=== PATIENT | male | born 1970 | race Caucasian/White ===

== ENCOUNTER 2018-12-29 21:22 | Inpatient (IN) | payer MEDICAID, MEDICARE ==
[~2018-12-29] VITALS: Ht 185.4 cm; Wt 94.5 kg
[2018-12-29] MEDS ORDERED: HALOPERIDOL 5 MG TABLET PO PRN (21:45)
[2018-12-29] MEDS ORDERED: ZOLPIDEM TARTRATE 10 MG TABLET PO PRN (21:45)
[2018-12-29 21:58] VITALS: BP 145/87
[2018-12-29] MEDS ORDERED: PNEUMOCOCCAL VACCINE POLYVALENT 0.5 ML VIAL [PPSV23] IM ONE (22:30)
[2018-12-30] MEDS: LORazepam 2 MG TABLET PO PRN ×2 (00:41→18:33)
[2018-12-30 00:43] VITALS: BP 129/66
[2018-12-30 08:36] LABS: EOSINOPHILS % (AUTO) 2.5 % (1.0-6.0); HEMATOCRIT 48.3 % (41-53); HEMOGLOBIN 16.2 g/dL (13.5-17.5); LYMPHOCYTES # (AUTO) 1.7 K/uL (1.0-4.8); LYMPHOCYTES % (AUTO) 30.9 % (22.0-44.0); MEAN CORPUSCULAR HEMOGLOBIN 29.7 pg (26.0-34.0); MEAN CORPUSCULAR HGB CONC 33.6 G/dL (31.0-37.0); MEAN CORPUSCULAR VOLUME 88 fL (80-100); MONOCYTES # (AUTO) 0.6 K/uL (0.1-1.0); MONOCYTES % (AUTO) 10.6 % (2.0-9.0); NEUTROPHILS # (AUTO) 3.1 K/uL (1.8-7.7); PLATELET COUNT (AUTO) 196 K/uL (150-450); RED BLOOD CELL COUNT(AUTO) 5.46 MIL/uL (4.50-5.90); RED CELL DISTRIBUTION WIDTH 13.4 % (11.5-14.5)
[2018-12-30 08:38] VITALS: BP 108/68
[2018-12-30 08:48] LABS: HEMOGLOBIN A1C 5.3 % (4.5-6.2)
[2018-12-30 09:09] LABS: ALANINE AMINOTRANSFERASE 22 U/L (12-78); ALKALINE PHOSPHATASE 82 U/L (46-116); ANION GAP 5 mmol/L (8-16); ASPARTATE AMINOTRANSFERASE 20 U/L (15-37); BILIRUBIN,TOTAL 2.2 mg/dL (0.1-1.0); CALCIUM, TOTAL 8.4 mg/dL (8.8-10.5); CARBON DIOXIDE 31 mmol/L (22-29); CHLORIDE 103 mmol/L (98-107); CHOL/HDL RATIO 2.5 (4.2-7.3); CHOLESTEROL 122 mg/dL (131-200); CREATININE 0.91 mg/dL (0.60-1.30); FREE T4 (FREE THYROXINE) 1.12 ng/dL (0.76-1.46); GLOMERULAR FILTR. RATE CALC > 60 mL/min (>60); GLUCOSE,RANDOM 88 mg/dL (70-110); HDL CHOLESTEROL 48 mg/dL (40-60); LDL CHOL (CALC.) 60 mg/dL (0-130); POTASSIUM 4.2 mmol/L (3.5-5.1); SODIUM SERUM 139 mmol/L (136-145); THYROID STIMULATING HORMONE 1.07 uIU/mL (0.36-3.74); TOTAL PROTEIN, SERUM 6.2 g/dL (6.4-8.2); TRIGLYCERIDES 69 mg/dL (15-150); UREA NITROGEN, BLOOD 13 mg/dL (7-18)
[2018-12-30] MEDS ORDERED: ARIPiprazole 15 MG TABLET PO SCH (12:45)
[2018-12-30 16:11] VITALS: BP 118/72
[2018-12-30] MEDS ORDERED: DIVALPROEX SODIUM 500 MG DR TABLET PO SCH (17:00)
[2018-12-31 06:10] VITALS: BP 101/65
[2018-12-31 09:24] VITALS: BP 123/87
[2018-12-31] MEDS ORDERED: HALOPERIDOL LACTATE 5 MG/ML VIAL IM ONE (11:00)
[2018-12-31] MEDS ORDERED: DiphenhydrAMINE HCL 50 MG/ML VIAL IM ONE (11:00)
[2018-12-31] MEDS ORDERED: LORazepam 2 MG/ML VIAL IM ONE (11:00)
[2018-12-31 11:35] VITALS: BP 121/75
[2018-12-31 16:02] VITALS: BP 110/70
[2018-12-31] MEDS: RisperiDONE 1 MG TABLET PO SCH (16:26)
[2019-01-01 05:51] VITALS: BP 113/76
[2019-01-01 08:33] VITALS: BP 120/76
[2019-01-01] MEDS: RisperiDONE 1 MG TABLET PO SCH (09:15)
[2019-01-01] MEDS ORDERED: RISP1 PO (11:59)
== END 2019-01-01 13:16 | disposition home or self-care (01) | DRG 754 ==
LOC: B2S 21:43 → B3A 12-31 11:08
PROVIDERS: ADMIT Psychiatry & Neurology Psychiatry; ATTEND Psychiatry & Neurology Psychiatry
DX: F32.9 Major depressive disorder, single episode, unspecified (principal); R45.851 Suicidal ideations; F22 Delusional disorders; K59.00 Constipation, unspecified; G47.00 Insomnia, unspecified; F41.9 Anxiety disorder, unspecified; Z56.0 Unemployment, unspecified; Z79.899 Other long term (current) drug therapy
CPT/HCPCS: 83036; 84439; 84443; 90686; 90732; J1200; J1630; J2060